=== PATIENT | male | born 1950 | race Caucasian/White ===

== ENCOUNTER 2020-03-07 11:43 | Day surgery (SDC) | payer MEDICARE, BC, SELFPAY ==
--- NOTE | 2020-03-07 | ECG_ITS ---
Test Reason : ECTOPY Blood Pressure : / mmHG Vent. Rate : 065 BPM Atrial Rate : 065 BPM P-R Int : 166 ms QRS Dur : 088 ms QT Int : 458 ms P-R-T Axes : 001 001 030 degrees QTc Int : 476 ms Sinus bradycardia with frequent Premature ventricular complexes in a pattern of bigeminy Nonspecific ST abnormality Abnormal ECG When compared with ECG of 26-MAY-2008 09:13, Premature ventricular complexes are now Present QT has lengthened ST now depressed in Inferior leads Heart rate has decreased Referred By: Darius Orellana Electronically Signed By:LORIE DOSHI MD
[2020-03-07 12:28] VITALS: BMI 29.9
[2020-03-07 12:32] VITALS: BP 119/70; PULSE 72; RESP 16; TEMP 36.7; O2SAT 100
--- NOTE | 2020-03-07 13:24 | P.CONAN_ITS ---
[facility] Past Medical History Medical History (Updated 03/06/20 @ 10:36 by Elida Guerrier RN) HTN (hypertension) Hx of fracture of femur Surgical History Surgical History (Updated 03/06/20 @ 10:36 by Elida Guerrier RN) Hx of colonoscopy Hx of total hip arthroplasty Hx of varicose vein ligation Social History Social History Smoking Status: Never smoker Use of substances other than those prescribed or required for medical reasons: No Advance Directives: No Advance Directives Information Provided: No Meds Allergies Allergy/AdvReac Type Severity Reaction Status Date / Time hydrochlorothiazide Allergy Unknown Verified 03/06/20 10:36 morphine [Morphine] AdvReac Mild NAUSEA & Unverified 01/03/20 15:15 VOMITING Home Medications Medication Instructions Recorded Confirmed Type amlodipine 10 mg PO DAILY 03/06/20 03/07/20 History aspirin 81 mg PO DAILY 03/06/20 03/06/20 History colchicine 0.6 mg PO DAILY PRN 03/06/20 03/06/20 History lisinopril 40 mg PO DAILY 03/06/20 03/07/20 History Exam Exam Date and Time: March 07, 2020 1324 Height,Weight and Vital Signs: Height 5 ft 9 in Weight 92.079 kg Last Vital Signs Temp 98.0 F 03/07/20 12:32 Pulse 72 03/07/20 12:32 Resp 16 03/07/20 12:32 BP 119/70 03/07/20 12:32 Pulse Ox 100 03/07/20 12:32 Airway Mallampati Class: II TM Dist: >3cm Neck ROM: Full Heart: RRR Assessment and Plan Assessment Anesthesia Assessment: Anesthesia Plan Discussed Final Anesthetic Review NPO: Yes ASA Class: II Final Preanesthetic Review: Consent Obtained/Reviewed Anesthetic Plan Anesthetic Plan: MAC: Disposition: Standard PACU
[2020-03-07 14:28] VITALS: BP 90/52; PULSE 62; RESP 16; TEMP 37; O2SAT 95
--- NOTE | 2020-03-07 14:33 | PM.OP ---
Brief Operative Note Date of Service: 03/07/20 Pre-op diagnosis: Screening, History of polyps, Family history of colon cancer Post-op diagnosis: other (Colon polyps, Diverticulosis) Procedure: Colonoscopy to cecum and TI with snare polypectomy x 2 Surgeon: Samm Almeida Anesthesia: MAC Estimated blood loss (mL): 2.0 Pathology: other (A. Polyp at 40cm B. Polyp at 30cm) Condition: stable Disposition: PACU
[2020-03-07 14:34] VITALS: BP 103/55
--- NOTE | 2020-03-07 14:48 | OP_ITS ---
SURGEON: Samm Almeida MD INDICATIONS: The patient presents for evaluation of colorectal cancer screening and personal history of tubular adenoma of the colon. Full consent has been obtained from him for this, including risks of bleeding and perforation. PREOPERATIVE DIAGNOSIS: POSTOPERATIVE DIAGNOSIS: PROCEDURE PERFORMED: ESTIMATED BLOOD LOSS: COMPLICATIONS: ANESTHESIA: Monitored anesthesia care. ASSISTANTS: SPECIMENS: PREOPERATIVE DIAGNOSES: Colorectal cancer screening, personal history of tubular adenoma of the colon, and family history of colon cancer. POSTOPERATIVE DIAGNOSES: Colorectal cancer screening, personal history of tubular adenoma of the colon, and family history of colon cancer, colon polyp, sigmoid diverticulosis, and internal hemorrhoids. DESCRIPTION OF PROCEDURE: The patient was placed in the left lateral decubitus position. The digital rectal exam revealed no abnormalities. The Olympus video pediatric colonoscope was entered into the rectum and advanced easily to the cecum. Once in the cecum, I did identify normal-appearing cecal pouch with appendiceal orifice and a normal-appearing ileocecal valve. The terminal ileum was cannulated and appeared normal. The scope was withdrawn back in the colon. The entire cecum and ileocecal valve appeared normal. The scope was slowly withdrawn assessing all mucosal surfaces carefully. Preparation was excellent. At 40 cm, was an approximately 6 mm polyp, which was snared and recovered by suction. The polypectomy site appeared clean, without any sign of residual polyp nor bleeding. At 30 cm, was an approximately 1.2 cm polyp on a short stalk, which was snared and recovered by withdrawing it on the tip of the colonoscope. The scope was then readvanced back to that polypectomy site. This appeared clean, without any sign of residual polyp nor bleeding. There was a mild amount of sigmoid diverticulosis. I did not visualize any sign of other polyps, colitis, nor angiodysplasia. In the rectum, scope was retroflexed visualizing small internal hemorrhoids, but no other pathology. The rectal mucosa appeared normal. The scope was straightened out and withdrawn from the patient. He tolerated the procedure well and was returned to the recovery area in stable condition. IMPRESSION: 1. Colon polyps, status post snare polypectomy. 2. Mild sigmoid diverticulosis. 3. Internal hemorrhoids. PLAN: The results of the pathology will be checked. I would recommend a repeat colonoscopy in 5 years for further screening. He was advised not to use any aspirin and NSAIDs for 1 week. He will otherwise see me on a p.r.n. basis. PROCEDURES PERFORMED: Colonoscopy to the cecum and terminal ileum with snare polypectomy. MD PARIS Macias/MAURA / [id number]
[2020-03-07 14:49] VITALS: BP 112/75; PULSE 64; RESP 16; TEMP 37; O2SAT 98
[2020-03-07 16:22] VITALS: BP 119/75; PULSE 62; RESP 16; O2SAT 98
[2020-03-07 16:52] LABS: Anion Gap 15 (12-20); Carbon Dioxide 26 mmol/L (22-29); Chloride 105 mmol/L (96-108); Magnesium 1.9 mg/dL (1.6-2.6); Potassium 4.3 mmol/l (3.3-5.1); Sodium 142 mmol/L (135-145)
[2020-03-07 17:00] VITALS: BP 119/72; PULSE 86; RESP 14; O2SAT 96
--- NOTE | 2020-03-07 17:08 | PC.NURSE ---
DR. SPARROW NOTIFIED LABS ARE BACK. WNL. NO ABNORMAL LABS. IONIZED CALCIUM IS A SEND OUT LAB AND WILL NOT BE RETURNED TODAY. PATIENT REMAINS WITH ECTOPY ASYMPTOMATIC. NO COMPLAINTS. NO PALPITATIONS. PER M.D. PATIENT MAY START TO GET DRESSED PREPARE FOR DISCHARGE.
[2020-03-10 19:47] LABS: Calcium, Ionized 5.2 mg/dL (4.8-5.6)
== END 2020-03-07 17:00 | disposition home or self-care (01) ==
PROVIDERS: Anesthesiology; PCP Internal Medicine; Visit Provider Internal Medicine
PROC: 0DJD8ZZ Inspection of Lower Intestinal Tract, Via Natural or Artificial Opening Endoscopic (ICD-10-PCS; CPT 45378; principal; 2020-03-07 12:50)
DX: Z12.11 Encounter for screening for malignant neoplasm of colon (principal); Z86.010 Personal history of colon polyps; Z80.0 Family history of malignant neoplasm of digestive organs; D12.5 Benign neoplasm of sigmoid colon; K57.30 Diverticulosis of large intestine without perforation or abscess without bleeding; K64.8 Other hemorrhoids; I10 Essential (primary) hypertension; Z79.899 Other long term (current) drug therapy; Z79.82 Long term (current) use of aspirin; Z88.8 Allergy status to other drugs, medicaments and biological substances
CPT/HCPCS: 45385; 36415; 80051; 82330; 83735; 85610; 88305; 93005